=== PATIENT | male | born 1980 | race African-American/Black ===

== ENCOUNTER 2021-03-19 00:26 | Emergency (ER) | payer OTHER ==
[2021-03-19 00:51] VITALS: TEMP 98.4; BMI 34.8
[2021-03-19 01:50] VITALS: BP 147/86; PULSE 96
== END 2021-03-19 01:52 | disposition home or self-care (01) ==
LOC: JER 00:26
DX: S90.851A Superficial foreign body, right foot, initial encounter (principal); S91.311A Laceration without foreign body, right foot, initial encounter; W25.XXXA Contact with sharp glass, initial encounter
CPT/HCPCS: 73630-TC-RT-FY; 99283-25